=== PATIENT | female | born 1945 | race Caucasian/White ===

== ENCOUNTER → 2016-10-26 | Outpatient (CLI) | payer MEDICARE ==
--- NOTE | 2016-10-26 12:13 | WOMENS IMAGING REPORT ---
EXAM DESCRIPTION: BILAT SCREENING MAMMO W/CAD COMPLETED DATE/TIME: 10/26/2016 9:07 am REASON FOR STUDY: Z12.31 ROUTINE SCREENING MAMMO Z12.31 ENCNTR SCREEN MAMMOGRAM FOR MALIGNANT NEOPL ASM OF [place] COMPARISON: 08/03/2012 TECHNIQUE: Standard craniocaudal and mediolateral oblique views of each breast recorded using digita l acquisition. LIMITATIONS: None. FINDINGS: No masses, calcifications or architectural distortion. No areas of suspicion. Read with the assistance of CAD. .[facility] - R2 Cenova Version 1.3 .[facility] - R2 Cenova Version 1.3 .[facility] - R2 Cenova Version 2.4 .[facility] [place]2 Cenova Version 2.4 .[facility] - R2 Riverboat Captain Version 9.2 BREAST DENSITY: b. There are scattered areas of fibroglandular density. BIRAD: 1 NEGATIVE RECOMMENDATION: ROUTINE SCREENING COMMENT: PATIENT NOTIFIED BY LETTER. The [employer] recommends an annual screening mammogram for women aged 40 years or over. Each patient will receive a reminder prior to the anniversary date of her mammogram. The [employer] (ACR) has developed recommendations for screening MRI of the breast s in certain patient populations, to be used in conjunction with mammography. Breast MRI surveillanc e may be appropriate for women with more than 20% lifetime risk of developing breast cancer as deter mined by genetic testing, significant family history of the disease, or history of mantle radiation f or Hodgkins Disease. ACR Practice Guidelines 2008. TECHNICAL DOCUMENTATION: FINDING NUMBER: (1) ASSESSMENT: (1) JOB ID: [id number] [employer]- All Rights Reserved
== END ==
LOC: WI 08:48
PROVIDERS: ATTEND Internal Medicine
DX: Z12.31 Encounter for screening mammogram for malignant neoplasm of breast (principal)
CPT/HCPCS: 77067; G0202

== ENCOUNTER 2018-02-05 02:22 | Inpatient (IN) | payer MEDICARE ==
[2018-02-05] MEDS ORDERED: DILTIAZEM HCL INJ 25 MG/5 ML VIAL IV ONE (02:49)
[2018-02-05] MEDS ORDERED: ACETAMINOPHEN 325 MG TABLET PO ONE (02:49)
[2018-02-05] MEDS ORDERED: ASPIRIN 81 MG TABLET, CHEWABLE PO ONE (02:50)
[2018-02-05 03:05] LABS: ABSOLUTE LYMPHOCYTES (AUTO) 1.3 10^3/uL (0.5-4.7); ABSOLUTE NEUT (AUTO) 5.7 10^3/uL (1.7-8.2); BASOPHILS % (AUTO) 0.5 % (0-2); EOSINOPHILS % (AUTO) 0.2 % (0-6); HEMATOCRIT 42.1 % (36.0-47.0); HEMOGLOBIN 14.6 g/dL (12.0-15.5); LYMPHOCYTES % (AUTO) 16.7 % (13-45); MEAN CORPUSCULAR HEMOGLOBIN 30.4 pg (27.0-33.4); MEAN CORPUSCULAR HGB CONC 34.7 g/dL (32.0-36.0); MEAN CORPUSCULAR VOLUME 88 fl (80-97); MONOCYTES % (AUTO) 12.4 % (3-13); PLATELET COUNT 170 10^3/uL (150-450); RED CELL DISTRIBUTION WIDTH 13.5 % (11.5-14.0); SEGMENTED NEUTROPHILS % (AUTO) 70.2 % (42-78); TOTAL CELLS COUNTED % (AUTO) 100 %; WHITE BLOOD COUNT 8.1 10^3/uL (4.0-10.5)
--- NOTE | 2018-02-05 03:14 | ER Document Report ---
ED Cardiac - General Chief Complaint: Palpitations Stated Complaint: IRREGULAR HEART RATE Time Seen by Provider: 02/05/18 02:40 Mode of Arrival: Ambulatory Information source: Patient Notes: Patient presents to emergency department in [facility] with RVR. Patient reports that she has had a history of this multiple times. This episode started as she was about to have a bowel movement. Patient reports that she took 150 mg of Toprol-XL this evening as usually scheduled. And added on a dose of 50 mg Toprol with no change. Patient also takes an 80 mg of Cardizem daily. Patient reports that she has been to the ER multiple times for this and typically IV Cardizem hurts her. Patient is also stating that she has had cold symptoms of cough and congestion for 2-3 days with a low-grade fever. Patient denies any nausea or vomiting, denies any chest pain. 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 Bolden in [place] and her primary care doctor is Dr. Gould. TRAVEL OUTSIDE OF THE [place] IN LAST 30 DAYS: No - Related Data Allergies/Adverse Reactions: No Known Allergies Allergy (Verified 02/05/18 02:47) Past Medical History - General Information source: Patient - Social History Smoking Status: Never Smoker Frequency of alcohol use: None Drug Abuse: None Family History: Reviewed & Not Pertinent - Past Medical History Cardiac Medical History: Reports: Hx Atrial Fibrillation - with RVR, Hx Hypertension - Immunizations Hx Diphtheria, Pertussis, Tetanus Vaccination: Yes History of Influenza Vaccine for 07/2017 - 12/2017 Season: No Review of Systems - Review of Systems Constitutional: Chills, Fever EENT: No symptoms reported Cardiovascular: See HPI Respiratory: See HPI Gastrointestinal: No symptoms reported Genitourinary: No symptoms reported Female Genitourinary: No symptoms reported Musculoskeletal: No symptoms reported Skin: No symptoms reported Hematologic/Lymphatic: No symptoms reported Neurological/Psychological: No symptoms reported Physical Exam - Vital signs Vitals: Temp 100.3 F 02/05/18 02:35 - Notes Notes: PHYSICAL EXAMINATION: GENERAL: Well-appearing, well-nourished and in no acute distress. HEAD: Atraumatic, normocephalic. EYES: Pupils equal round and reactive to light, extraocular movements intact, conjunctiva are normal. ENT: Nares patent, oropharynx clear without exudates. Moist mucous membranes. NECK: Normal range of motion, supple without lymphadenopathy LUNGS: Breath sounds clear to auscultation bilaterally and equal. No wheezes rales or rhonchi. HEART: Increased heart rate, no murmur noted. ABDOMEN: Soft, nontender, nondistended abdomen. No guarding, no rebound. No masses appreciated. Female : deferred Musculoskeletal: Normal range of motion, no pitting or edema. No cyanosis. NEUROLOGICAL: Cranial nerves grossly intact. Normal speech, normal gait. Normal sensory, motor exams PSYCH: Normal mood, normal affect. SKIN: Warm, Dry, normal turgor, no rashes or lesions noted. Course - Re-evaluation Re-evalutation: Patient arrives in A. fib with RVR with a rate in the 140s. Patient states this has happened multiple times before. Patient states that her box printing machine operator has directed her to take an extra dose of her metoprolol. Patient reports that she took an extra dose but it did not help. Will give patient Cardizem bolus 15 mg. Patient denies any chest pain or shortness of breath. Patient reports that she has had a cough and congestion for the last 2-3 days with a low-grade fever, will add on septic workup. Patients heart rate down from 142 to 95 with 15 mg Cardizem bolus. We will hold off on starting drip at this time as patient states that in the past 1 IV dose of Cardizem has dropped her heart rate well enough that she has been able to avoid a drip. CBC, BMP, VBG and lactic are unremarkable. Chest x-ray with no acute findings. Heart rate increasing back to the 115-120 range, we will initiate Cardizem drip and consult hospitalist for admission. Spoke with Dr. Roger, hospitalist, Dr. Roger agrees to admit patient to his service. Patient is agreeable to this plan of care. Patient continues to deny any chest pain shortness of breath or palpitations. At time of admission patient's heart rate 86 and patient has remained normotensive and afebrile. - Vital Signs Vital signs: Temp Pulse Resp BP Pulse Ox 98.8 F 18 102/51 L 95 02/05/18 05:45 02/05/18 05:51 02/05/18 05:51 02/05/18 05:51 - Laboratory Result Diagrams: 02/05/18 02:43 02/05/18 02:43 Laboratory results interpreted by me: 02/05/18 02/05/18 02:43 02:43 Total Protein 8.3 H Urine Protein 30 H Urine Blood SMALL H Discharge - Discharge Clinical Impression: A-fib Qualifiers: Atrial fibrillation type: unspecified Qualified Code(s): I48.91 - Unspecified atrial fibrillation Fever Qualifiers: Fever type: unspecified Qualified Code(s): R50.9 - Fever, unspecified Condition: Stable Disposition: ADMITTED OBSERVATION Admitting Provider: Hospitalist Unit Admitted: Telemetry
[2018-02-05 03:17] LABS: ALANINE AMINOTRANSFERASE 30 U/L (9-52); ALBUMIN 4.9 g/dL (3.5-5.0); ALKALINE PHOSPHATASE 95 U/L (38-126); ASPARTATE AMINO TRANSFERASE 30 U/L (14-36); BILIRUBIN,DIRECT 0.3 mg/dL (0.0-0.4); BILIRUBIN,TOTAL 0.3 mg/dL (0.2-1.3); BLOOD UREA NITROGEN 15 mg/dL (7-20); CALCIUM 9.4 mg/dL (8.4-10.2); CREATINE KINASE 61 U/L (30-135); GLUCOSE 108 mg/dL (75-110); SODIUM 143.7 mmol/L (137-145); TOTAL PROTEIN 8.3 g/dL (6.3-8.2)
[2018-02-05 03:20] LABS: ANION GAP 16 (5-19); CARBON DIOXIDE 28 mmol/L (22-30); CHLORIDE 100 mmol/L (98-107)
[2018-02-05 03:23] LABS: APPEARANCE,URINE CLEAR; BILIRUBIN,URINE NEGATIVE (NEGATIVE); COLOR,URINE COLORLESS; GLUCOSE, URINE NEGATIVE (NEGATIVE); KETONES,URINE NEGATIVE (NEGATIVE); LEUKOCYTE ESTERASE,URINE NEGATIVE (NEGATIVE); NITRITE,URINE NEGATIVE (NEGATIVE); PROTEIN,URINE 30 mg/dL (NEGATIVE); URINE SPECIFIC GRAVITY 1.004; UROBILINOGEN,URINE NEGATIVE mg/dL (<2.0)
[2018-02-05 03:28] LABS: VENOUS BLOOD BASE EXCESS 0.2 mmol/L; VENOUS BLOOD HCO3 24.3 mmol/L (20-32); VENOUS BLOOD PH 7.42 (7.30-7.42)
[2018-02-05 03:29] LABS: CREATINE KINASE MB 0.43 ng/mL (<4.55); TROPONIN I < 0.012 ng/mL
[2018-02-05] MEDS ORDERED: DILTIAZEM HCL/D5W 125 MG/125 ML RTUINJ IV PRN (03:57)
[2018-02-05] MEDS ORDERED: DILTIAZEM HCL/D5W 125 MG/125 ML RTUINJ IV ONE (04:24)
[2018-02-05] MEDS ORDERED: CEFTRIAXONE INJ 1000 MG VIAL IV ONE (04:51)
[2018-02-05] MEDS ORDERED: AZITHROMYCIN INJ 500 MG VIAL IV ONE (04:52)
[2018-02-05] MEDS ORDERED: CHLORPHENIRAMINE MALEATE 4 MG TABLET PO ONE (05:05)
[2018-02-05] MEDS ORDERED: GUAIFENESIN SYRP 200 MG/10 ML UDC PO PRN (05:07)
[2018-02-05] MEDS ORDERED: ACETAMINOPHEN 325 MG TABLET PO PRN (05:07)
[2018-02-05] MEDS ORDERED: METOPROLOL TARTRATE 100 MG TABLET PO ONE (05:15)
[2018-02-05] MEDS ORDERED: FLUTICASONE NASAL SPRAY 50 MCG/SPRY 120 SPRAY/16 GM NASL ONE (05:45)
[2018-02-05] MEDS ORDERED: HEPARIN SOD (PORCINE) 5,000 UNIT/ML 1 ML SYRINGE SUBCUT SCH (06:00)
--- NOTE | 2018-02-05 07:21 | PDOC H&P ---
History of Present Illness Admission Date/PCP: 02/05/18 05:15 ERICK SHARMA MD Patient complains of: Cough and palpitations History of Present Illness: MARIO GEORGE is a 72 year old female with a past medical history of paroxysmal atrial fibrillation. Patient presents with 12 hours of palpitations for which she is instructed to take an extra 50 mg of Lopressor but did not resolve. She denies chest pain, nausea vomiting diaphoresis. She admits 48 hours of URI symptoms with rhinorrhea, postnasal drip and nonproductive cough. In the emergency room she is in A. fib with RVR and started on IV Cardizem in addition to a fever of 100.3 and receives Tylenol. Patient admits taking Coricidin and ibuprofen for URI symptoms but denies missing her scheduled diltiazem or metoprolol. Past Medical History Cardiac Medical History: Reports: Atrial Fibrillation - with RVR, Hypertension Social History Information Source: Patient Smoking Status: Never Smoker Frequency of Alcohol Use: None Drugs: None - Advance Directive Resuscitation Status: Full Code Family History Family History: CAD Parental Family History Reviewed: Yes Children Family History Reviewed: Yes Sibling(s) Family History Reviewed.: Yes Medication/Allergy Allergies/Adverse Reactions: No Known Allergies Allergy (Verified 02/05/18 02:47) Review of Systems Constitutional: ABSENT: chills, fever(s), headache(s), weight gain, weight loss Eyes: ABSENT: visual disturbances Ears: ABSENT: hearing changes Nose, Mouth, and Throat: PRESENT: as per HPI. ABSENT: headache(s), mouth pain, sore throat Cardiovascular: PRESENT: as per HPI. ABSENT: chest pain, dyspnea on exertion, edema, orthropnea, palpitations Respiratory: PRESENT: as per HPI, cough. ABSENT: dyspnea, hemoptysis, sputum Gastrointestinal: ABSENT: abdominal pain, constipation, diarrhea, hematemesis, hematochezia, nausea, vomiting Genitourinary: ABSENT: dysuria, hematuria Musculoskeletal: ABSENT: joint swelling Integumentary: ABSENT: rash, wounds Neurological: ABSENT: abnormal gait, abnormal speech, confusion, dizziness, focal weakness, syncope Psychiatric: ABSENT: anxiety, depression, homidical ideation, suicidal ideation Endocrine: ABSENT: cold intolerance, heat intolerance, polydipsia, polyuria Hematologic/Lymphatic: ABSENT: easy bleeding, easy bruising Physical Exam Vital Signs: Temp Pulse Resp BP Pulse Ox 98.8 F 18 99/51 L 98 02/05/18 05:45 02/05/18 06:25 02/05/18 06:15 02/05/18 06:32 General appearance: PRESENT: no acute distress, cooperative. ABSENT: disheveled Head exam: PRESENT: atraumatic, normocephalic Eye exam: PRESENT: conjunctiva pink, EOMI, PERRLA. ABSENT: scleral icterus Ear exam: PRESENT: normal external ear exam Mouth exam: PRESENT: moist, tongue midline Neck exam: ABSENT: carotid bruit, JVD, lymphadenopathy, thyromegaly Respiratory exam: PRESENT: clear to auscultation maria t, crackles, symmetrical. ABSENT: accessory muscle use, rales, rhonchi, wheezes Cardiovascular exam: PRESENT: RRR. ABSENT: diastolic murmur, rubs, systolic murmur Pulses: PRESENT: normal dorsalis pedis pul Vascular exam: PRESENT: normal capillary refill GI/Abdominal exam: PRESENT: normal bowel sounds, soft. ABSENT: distended, guarding, mass, organolmegaly, rebound, tenderness Rectal exam: PRESENT: deferred Extremities exam: PRESENT: full ROM. ABSENT: calf tenderness, clubbing, pedal edema Neurological exam: PRESENT: alert, awake, oriented to person, oriented to place , oriented to time, oriented to situation, CN II-XII grossly intact. ABSENT: motor sensory deficit Psychiatric exam: PRESENT: appropriate affect, normal mood. ABSENT: homicidal ideation, suicidal ideation Skin exam: PRESENT: dry, intact, warm. ABSENT: cyanosis, rash Assessment & Plan - Diagnosis (1) A-fib Qualifiers: Atrial fibrillation type: unspecified Qualified Code(s): I48.91 - Unspecified atrial fibrillation Is this a current diagnosis for this admission?: Yes Plan: Patient has converted to normal sinus rhythm on IV diltiazem. Will optimize metoprolol, 2D echo and full dose Lovenox. (2) Acute bronchitis Is this a current diagnosis for this admission?: Yes Plan: Empiric antibiotic, Flonase, albuterol and Xopenex. Consider prednisone - Time Time Spent: 30 to 50 Minutes - Inpatient Certification Medical Necessity: Need Close Monitoring Due to Risk of Patient Decompensation
[2018-02-05] MEDS ORDERED: ENOXAPARIN SODIUM INJ 60 MG/0.6 ML DISP.SYRIN SUBCUT ONE (07:45)
--- NOTE | 2018-02-05 08:11 | EKG REPORT ---
SEVERITY:- ABNORMAL ECG - ATRIAL FIBRILLATION WITH RAPID V-RATE CONSIDER POSTERIOR INFARCT REPOLARIZATION ABNORMALITY, PROB RATE RELATED : Confirmed by: Juni Haile MD 05-Feb-2018 08:10:13
--- NOTE | 2018-02-05 08:11 | EKG REPORT ---
SEVERITY:- ABNORMAL ECG - ATRIAL FIBRILLATION, V-RATE 75-92 : Confirmed by: Juni Haile MD 05-Feb-2018 08:09:55
[2018-02-05] MEDS: IPRATROPIUM BROMIDE 0.02% NEB 0.5 MG/2.5 ML AMPUL NEB SCH ×2 (08:17→13:51)
[2018-02-05] MEDS: LEVALBUTEROL HCL NEB 1.25 MG/3 ML AMPUL NEB SCH ×2 (08:18→13:51)
--- NOTE | 2018-02-05 08:42 | RADIOLOGY REPORT (SQ) ---
EXAM DESCRIPTION: CHEST SINGLE VIEW COMPLETED DATE/TIME: 02/05/2018 3:54 am REASON FOR STUDY: afib with RVR COMPARISON: 07/27/2007 EXAM PARAMETERS: NUMBER OF VIEWS: One view. TECHNIQUE: Single frontal radiographic view of the chest acquired. RADIATION DOSE: NA LIMITATIONS: None. FINDINGS: LUNGS AND PLEURA: No opacities, masses or pneumothorax. No pleural effusion. MEDIASTINUM AND HILAR STRUCTURES: No masses. Contour normal. HEART AND VASCULAR STRUCTURES: Heart normal in size. Normal vasculature. BONES: No acute findings. HARDWARE: None in the chest. OTHER: No other significant finding. IMPRESSION: NO ACUTE RADIOGRAPHIC FINDING IN THE CHEST. TECHNICAL DOCUMENTATION: JOB ID: [id number] [employer]- All Rights Reserved Reading location - IP/workstation name: [email or web address]
[2018-02-05] MEDS ORDERED: DILTIAZEM HCL 120 MG CAP.SR.24H PO SCH (10:00)
[2018-02-05 11:35] LABS: CREATINE KINASE MB 0.35 ng/mL (<4.55)
[2018-02-05 11:36] LABS: TROPONIN I < 0.012 ng/mL
[2018-02-05 13:59] VITALS: BP 95/59
--- NOTE | 2018-02-05 14:35 | PDOC DISCHARGE SUMMARY ---
General - Admit/Disc Date/PCP Admission Date/Primary Care Provider: 02/05/18 05:15 ERICK SHARMA MD Discharge Date: 02/05/18 - Discharge Diagnosis (1) A-fib Is this a current diagnosis for this admission?: Yes (2) Acute bronchitis Is this a current diagnosis for this admission?: Yes (3) Fever Is this a current diagnosis for this admission?: Yes - Additional Information Resuscitation Status: Full Code Discharge Diet: As Tolerated Discharge Activity: Activity As Tolerated Prescriptions: Azithromycin [Zithromax 250 mg Tablet] 500 mg PO DAILY #4 tab Fluticasone Propionate [Flonase Nasal [place] 50 Mcg/[place] 16 gm] 2 spray NASL Q12 14 Days #1 spray.pump Home Medications: Azithromycin [Zithromax 250 mg Tablet] 500 mg PO DAILY #4 tab 02/05/18 Diltiazem HCl [Cartia Xt] 180 mg PO DAILY 02/05/18 Fluticasone Propionate [Flonase Nasal [place] 50 Mcg/[place] 16 gm] 2 spray NASL Q12 14 Days #1 spray.pump 02/05/18 Metoprolol Succinate [Toprol XL 100 mg Tablet] 150 mg PO QPM 02/05/18 History of Present Illness Patient complains of: Palpitations as well as cough for 1 day History of Present Illness: MARIO GEORGE is a 72 year old female with a past medical history of paroxysmal atrial fibrillation. Patient presents with 12 hours of palpitations for which she is instructed to take an extra 50 mg of Lopressor but did not resolve. She denies chest pain, nausea vomiting diaphoresis. She admits 48 hours of URI symptoms with rhinorrhea, postnasal drip and nonproductive cough. In the emergency room she is in A. fib with RVR and started on IV Cardizem in addition to a fever of 100.3 and receives Tylenol. Patient admits taking Coricidin and ibuprofen for URI symptoms but denies missing her scheduled diltiazem or metoprolol. Hospital Course Hospital Course: This patient was admitted with atrial fibrillation with rapid ventricular response. She was found to have acute bronchitis and this likely was the precipitant. Patient does have history of chronic atrial fibrillation and it appears she had been well controlled on her current diltiazem and metoprolol regimen. She has converted to sinus rhythm at this time.. She has walked up and down the hallway with no paroxysms of atrial fibrillation. Patient does have a cardiology that she follows. She is not on any anticoagulant likely because of a low chads 2 vascular score and at this point I see no indication to start out on anticoagulant. I will leave this up to have videotape editor who she already has a follow-up appointment with on February 09. Patient is feeling well and would no further interventions been planned and with stable hemodynamics it is felt that she can be discharged home for follow- up with her primary care physician. Physical Exam Vital Signs: Temp Pulse Resp BP Pulse Ox 97.6 F 62 20 95/59 L 98 02/05/18 13:57 02/05/18 13:57 02/05/18 13:57 02/05/18 13:57 02/05/18 13:57 Pulse Oximeter Continuous Start: 02/05/18 05: 07 Freq: RTQ4 Status: Active Document 02/05/18 12:00 JDR (Rec: 02/05/18 12:16 JDR [email or web address]) Pulse Oximetry Assessment Equipment Usage Equipment Standby Continuous SpO2 Machine # 0 Additional RT Notes Other on nurses monitor Intake & Output 02/04/18 02/05/18 02/06/18 06:59 06:59 06:59 Intake Total 150 Balance 150 Weight 54.6 kg General appearance: PRESENT: no acute distress Head exam: PRESENT: atraumatic Eye exam: PRESENT: conjunctiva pink, EOMI, PERRLA. ABSENT: scleral icterus Ear exam: PRESENT: normal external ear exam Pulses: PRESENT: normal dorsalis pedis pul GI/Abdominal exam: PRESENT: ascites Rectal exam: PRESENT: deferred Psychiatric exam: PRESENT: appropriate affect Results Laboratory Results: 02/05/18 02/05/18 07:52 10:38 CK-MB (CK-2) 0.35 Troponin I < 0.012 < 0.012 Impressions: Chest X-Ray 02/05/18 02:50 IMPRESSION: NO ACUTE RADIOGRAPHIC FINDING IN THE CHEST. Qualifiers - * PATIENT BEING DISCHARGED WITH ANY OF THE FOLLOWING DIAGNOSIS: No
[2018-02-05] MEDS ORDERED: METOPROLOL TARTRATE 100 MG TABLET PO SCH (22:00)
[2018-02-05] MEDS ORDERED: ENOXAPARIN SODIUM INJ 60 MG/0.6 ML DISP.SYRIN SUBCUT SCH (22:00)
[2018-02-05] MEDS ORDERED: FLUTICASONE NASAL SPRAY 50 MCG/SPRY 120 SPRAY/16 GM NASL SCH (22:00)
[2018-02-06] MEDS ORDERED: CEFTRIAXONE SODIUM 1,000 MG in DEXTROSE 5%-WATER 50 ML IV SCH (08:00)
[2018-02-06] MEDS ORDERED: CEFTRIAXONE 1 GM/D5W RTU 1 GM/50 ML RTUPB IV SCH (08:00)
[2018-02-06] MEDS ORDERED: AZITHROMYCIN 500 MG in DEXTROSE 5%-WATER 250 ML IV SCH (08:00)
== END 2018-02-05 14:37 | disposition home or self-care (01) | DRG 310 ==
LOC: ER 02:22 → OBSVTOIN 05:15 → EH 05:15 → 3W 06:46
PROVIDERS: ADMIT Internal Medicine; ATTEND Internal Medicine
DX: I48.0 Paroxysmal atrial fibrillation (principal); J20.9 Acute bronchitis, unspecified; I10 Essential (primary) hypertension; Z79.899 Other long term (current) drug therapy; Z82.49 Family history of ischemic heart disease and other diseases of the circulatory system
CPT/HCPCS: 36415; 71045; 80053; 81001; 82550; 82553; 82803; 83605; 84484; 85025; 87040; 93005; 93010; 94640; 94667; 94799; 96365; 96366; 96367; 96368; 96372; 96376; 99285; J0456; J0696; J1644; J1650; J3490

== ENCOUNTER 2020-08-11 03:57 | Inpatient (IN) | payer MEDICARE ==
[2020-08-11] MEDS ORDERED: DILTIAZEM HCL INJ 25 MG/5 ML VIAL IV ONE (04:27)
[2020-08-11] MEDS ORDERED: DILTIAZEM HCL/D5W 125 MG/125 ML RTUINJ IV PRN (04:27)
--- NOTE | 2020-08-11 04:28 | ER Document Report ---
ED Cardiac - General TRAVEL OUTSIDE OF THE [place] IN LAST 30 DAYS: No <SABINO NARANJO - Last Filed: 08/11/20 06:50> <NAYE CAMERON - Last Filed: 08/11/20 09:32> - General Chief Complaint: Chest Pain Stated Complaint: CHEST PAIN Time Seen by Provider: 08/11/20 04:15 Primary Care Provider: ERICK SHARMA MD [Primary Care Provider] - Follow up as needed - [facility] Notes: Patient is a 74-year-old female with a past medical history of atrial fibrillation on Eliquis who presents with palpitations. She states symptoms began at 2:15 AM and woke her up from sleep. This feels just like her normal atrial fibrillation symptoms. She states she has some slight discomfort in her right chest. She denies shortness of breath. No fevers or chills. No cough or cold. Patient states she tried to drink cold water at home to help the symptoms but it did not help. She sees cardiology in [place]. (SABINO NARANJO) - Related Data Allergies/Adverse Reactions: No Known Allergies Allergy (Verified 02/05/18 02:47) Past Medical History - General Information source: Patient - Social History Family History: CAD - Past Medical History Cardiac Medical History: Reports: Hx Atrial Fibrillation - with RVR, Hx Hypertension Renal/ Medical History: Denies: Hx Peritoneal Dialysis Psychiatric Medical History: Denies: Hx Depression - Immunizations Hx Diphtheria, Pertussis, Tetanus Vaccination: Yes <SABINO NARANJO - Last Filed: 08/11/20 06:50> - Social History Smoking Status: Unknown if Ever Smoked <NAYE CAMERON - Last Filed: 08/11/20 09:32> Review of Systems <SABINO NARANJO - Last Filed: 08/11/20 06:50> - Review of Systems Notes: CONSTITUTIONAL: No fever, fatigue or weight loss. SKIN: No rash. HENT: No congestion, ear pain, or sore throat. EYES: No recent vision problems or eye pain. ENDOCRINE: No thyroid problems. No polyuria or polydipsia. CARDIOVASCULAR: Mild chest discomfort on the right. Palpitations. RESPIRATORY: No cough, shortness of breath, congestion, or wheezing. GASTROINTESTINAL: No abdominal pain, nausea, vomiting, bloody stools or diarrhea. GENITOURINARY: No dysuria. MUSCULOSKELETAL: No joint pain or swelling. LYMPHATIC: No swollen glands. NEUROLOGIC: No seizures. No headache, focal weakness or sensory changes. HEMATOLOGIC: No unusual bruising or bleeding. PSYCHIATRIC: No depression or anxiety. (SABINO NARANJO) Physical Exam - General General appearance: Appears well <SABINO NARANJO - Last Filed: 08/11/20 06:50> - Vital signs Vitals: Resp Pulse Ox 17 98 08/11/20 04:17 08/11/20 04:17 - General Notes: VITAL SIGNS: Tachycardic GENERAL: No acute distress, non-toxic appearance. HEAD: Normal with no signs of head trauma. EYES: EOMI, conjunctiva normal, no discharge. EARS: Hearing grossly intact. NOSE: Normal. NECK: Normal range of motion, no tenderness, supple, no lymphadenopathy, No adenopathy, no JVD. CHEST: Clear breath sounds bilaterally. No wheezes, rales, or rhonchi. CARDIAC: Tachycardic.. VASCULAR: No Edema. Peripheral pulses normal and equal in all extremities. ABDOMEN: Normal and soft with no tenderness, no masses or pulsatile masses. GENITOURINARY: Normal, No tenderness MUSCULOSKELETAL: Good range of motion of all major joints. Extremities without clubbing, cyanosis or edema. NEUROLOGICAL: Alert and oriented x 3. No focal sensory or strength deficits. Speech normal. Follows commands appropriately. PSYCHIATRIC: Normal Affect, judgement and mood. SKIN: Normal appearance with no rashes or lesions. (SABINO NARANJO) Course - Laboratory Result Diagrams: 08/11/20 04:20 08/11/20 04:20 - Diagnostic Test Radiology reviewed: Image reviewed, Reports reviewed - EKG Interpretation by Ga Rate: Tachycardia Rhythm: A.Flutter When compared to previous EKG there are: No significant change <SABINO NARANJO - Last Filed: 08/11/20 06:50> - Laboratory Result Diagrams: 08/11/20 04:20 08/11/20 04:20 <NAYE CAMERON - Last Filed: 08/11/20 09:32> - Re-evaluation Re-evalutation: 08/11/20 04:56 She has an A flutter. She will be given Cardizem. 08/11/20 06:18 Patient converted to normal sinus rhythm after the Cardizem bolus and drip. The drip was stopped. I discussed with cardiology who stated that she can be discharged home and continue her normal medication regimen. They stated that likely her slightly raised troponin is from the tachycardia. 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 I did discuss with her staying for second troponin to make sure it is not rising and she is in agreement. She states that her chest discomfort has eased up. Patient will be signed out to my colleague at the end of my shift. (SABINO HOLLEY) 08/11/20 09:23 Second troponin is trending upward 0.042. Patient is pain-free. Her follow-up EKG showed no acute ST/T wave changes. Findings were discussed with her cardio logist in [place] Dr. Velazco and they recommend patient should be admitted locally and seen by cardiology for nuclear stress testing. I discussed this with Dr. Cain our on-call [employer] operations and he was also comfortable with this plan. He recommends admission by the hospitalist. Patient is agreeable with this plan. Patient will be presented to the on-call hospitalist Dr. Rogers for admission. (NAYE CAMERON) - Vital Signs Vital signs: Temp Pulse Resp BP Pulse Ox 98.5 F 155 H 12 122/66 97 08/11/20 06:00 08/11/20 04:26 08/11/20 06:01 08/11/20 06:00 08/11/20 06:01 - Laboratory Laboratory results interpreted by me: 08/11/20 08/11/20 08/11/20 04:20 04:20 04:30 Hgb 15.7 H Glucose 121 H Total Protein 8.3 H Urine Protein 30 H Urine Blood SMALL H - EKG Interpretation by Me Additional EKG results interpreted by me: 08/11/20 06:51 Repeat EKG shows sinus rhythm at a rate of 72. QTc 430. No acute ST changes. (SABINO NARANJO) Discharge <SABINO NARANJO - Last Filed: 08/11/20 06:50> - Discharge Admitting Provider: Ken (Hospitalist) Unit Admitted: Telemetry <NAYE CAMERON - Last Filed: 08/11/20 09:32> - Discharge Clinical Impression: Atrial flutter Qualifiers: Atrial flutter type: unspecified Qualified Code(s): I48.92 - Unspecified atrial flutter Chest pain Qualifiers: Chest pain type: unspecified Qualified Code(s): R07.9 - Chest pain, unspecified Condition: Stable Disposition: HOME, SELF-CARE Additional Instructions: Please follow-up with your [employer] operations. Please return to the ER for any return of chest pain, shortness of breath, palpitations, any other symptoms. Referrals: ERICK SHARMA MD [Primary Care Provider] - Follow up as needed
[2020-08-11 04:37] LABS: ABSOLUTE BASOPHILS # (AUTO) 0.1 10^3/uL (0.0-0.2); ABSOLUTE EOSINOPHILS # (AUTO) 0.3 10^3/uL (0.0-0.6); ABSOLUTE LYMPHOCYTES (AUTO) 2.2 10^3/uL (0.5-4.7); ABSOLUTE MONOCYTES (AUTO) 0.8 10^3/uL (0.1-1.4); ABSOLUTE NEUT (AUTO) 5.4 10^3/uL (1.7-8.2); BASOPHILS % (AUTO) 1.1 % (0-2); EOSINOPHILS % (AUTO) 3.4 % (0-6); HEMATOCRIT 44.2 % (36.0-47.0); HEMOGLOBIN 15.7 g/dL (12.0-15.5); LYMPHOCYTES % (AUTO) 24.8 % (13-45); MEAN CORPUSCULAR HEMOGLOBIN 31.6 pg (27.0-33.4); MEAN CORPUSCULAR HGB CONC 35.5 g/dL (32.0-36.0); MEAN CORPUSCULAR VOLUME 89 fl (80-97); MONOCYTES % (AUTO) 9.5 % (3-13); PLATELET COUNT 252 10^3/uL (150-450); RED BLOOD COUNT 4.97 10^6/uL (3.72-5.28); SEGMENTED NEUTROPHILS % (AUTO) 61.2 % (42-78); TOTAL CELLS COUNTED % (AUTO) 100 %; WHITE BLOOD COUNT 8.8 10^3/uL (4.0-10.5)
[2020-08-11 04:54] LABS: APPEARANCE,URINE CLEAR; BILIRUBIN,URINE NEGATIVE (NEGATIVE); COLOR,URINE COLORLESS; GLUCOSE, URINE NEGATIVE (NEGATIVE); KETONES,URINE NEGATIVE (NEGATIVE); LEUKOCYTE ESTERASE,URINE NEGATIVE (NEGATIVE); NITRITE,URINE NEGATIVE (NEGATIVE); PROTEIN,URINE 30 mg/dL (NEGATIVE); URINE SPECIFIC GRAVITY 1.002; UROBILINOGEN,URINE NEGATIVE mg/dL (<2.0)
[2020-08-11 04:56] LABS: ALBUMIN 4.9 g/dL (3.5-5.0); ALKALINE PHOSPHATASE 80 U/L (38-126); ANION GAP 11 (5-19); ASPARTATE AMINO TRANSFERASE 35 U/L (14-36); BILIRUBIN,TOTAL 0.5 mg/dL (0.2-1.3); BLOOD UREA NITROGEN 17 mg/dL (7-20); CALCIUM 10.1 mg/dL (8.4-10.2); CARBON DIOXIDE 26 mmol/L (22-30); CHLORIDE 104 mmol/L (98-107); CREATINE KINASE 64 U/L (30-135); GLUCOSE 121 mg/dL (75-110); POTASSIUM 4.3 mmol/L (3.6-5.0); TOTAL PROTEIN 8.3 g/dL (6.3-8.2)
[2020-08-11 05:07] LABS: CREATINE KINASE MB 0.85 ng/mL (<4.55); TROPONIN I 0.021 ng/mL
--- NOTE | 2020-08-11 05:09 | RADIOLOGY REPORT (SQ) ---
CLINICAL HISTORY: palpitations COMPARISON: 02/05/2018. TECHNIQUE: XR CHEST 1 VIEW 08/11/2020 4:16 AM [employer]JECT MANAGER FINDINGS: The heart is borderline in size. Lungs are clear without consolidation, atelectasis, mass or edema. There is no pleural effusion. There is no pneumothorax. There are no acute osseous findings. IMPRESSION: Clear lungs.
--- NOTE | 2020-08-11 06:23 | EKG REPORT ---
SEVERITY:- NORMAL ECG - SINUS RHYTHM : Confirmed by: Juni Haile MD 11-Aug-2020 06:22:43
--- NOTE | 2020-08-11 07:52 | EKG REPORT ---
SEVERITY:- ABNORMAL ECG - A-FIB W/ RVR PROLONGED QT INTERVAL : Confirmed on behalf of: Juni Haile MD 11-Aug-2020 07:52:14
[2020-08-11 11:03] LABS: FREE T4 (FREE THYROXINE) 1.24 ng/dL (0.78-2.19)
[2020-08-11 11:17] LABS: THYROID STIMULATING HORMONE 8.23 uIU/mL (0.47-4.68)
[2020-08-11] MEDS ORDERED: REGADENOSON INJ 0.4 MG/5 ML DISP.SYRIN IV ONE (11:52)
[2020-08-11] MEDS: APIXABAN 5 MG TABLET PO SCH ×2 (12:13→21:23)
--- NOTE | 2020-08-11 14:29 | PDOC H&P ---
History of Present Illness Admission Date/PCP: 08/11/20 10:07 ERICK SHARMA MD History of Present Illness: MARIO GEORGE is a 74 year old female with a history of atrial fibrillation on 3 medications for rate control plus anticoagulation who was in her usual state of health until she woke up at 2:00 this morning. She felt a heaviness and a burning in her chest that she had not felt before. She says she was suspicious that her heart rate was out of control and she checked it and it was elevated. She tried to do some conservative measures at home to try to get it under better control but these did not work. She said her rate got as high as 149. Her last stress test was 3 or 4 years ago. She came to the ER and was given some IV Cardizem and was going to be put on a Cardizem drip but she converted to a sinus rhythm. She then took all of her home medications this morning as prescribed. She has maintained a sinus rhythm since. Her chest discomfort also resolved. She did have some bump in her troponins. Her director river restoration was contacted. She sees a Dr. Eagle who spoke to Dr. Cain and asked if she could be brought in for a nuclear stress test. Past Medical History Cardiac Medical History: Reports: Atrial Fibrillation - with RVR, Hypertension Psychiatric Medical History: Denies: Depression Social History Smoking Status: Unknown if Ever Smoked Frequency of Alcohol Use: None Hx Recreational Drug Use: No Drugs: None Hx Prescription Drug Abuse: No Family History Family History: CAD Parental Family History Reviewed: Yes Children Family History Reviewed: Yes Sibling(s) Family History Reviewed.: Yes Medication/Allergy Home Medications: Diltiazem HCl [Cartia Xt] 180 mg PO DAILY 02/05/18 Apixaban [Eliquis 5 mg Tablet] 5 mg PO BID 08/11/20 Carvedilol 25 mg PO Q12 08/11/20 Flecainide Acetate [Tambocor 100 Mg Tablet] 100 mg PO Q12 08/11/20 Allergies/Adverse Reactions: No Known Allergies Allergy (Verified 02/05/18 02:47) Review of Systems All systems: reviewed and no additional remarkable complaints except as stated - All systems were reviewed and were negative except as noted in HPI Physical Exam Vital Signs: Temp Pulse Resp BP Pulse Ox 98.5 F 155 H 12 122/66 97 08/11/20 06:00 08/11/20 04:26 08/11/20 06:01 08/11/20 06:00 08/11/20 06:01 Intake & Output 08/10/20 08/11/20 08/12/20 06:59 06:59 06:59 Intake Total 7 0 Balance 7 0 Weight 61.8 kg General appearance: PRESENT: no acute distress, cooperative Head exam: PRESENT: atraumatic, normocephalic Eye exam: PRESENT: EOMI, PERRLA. ABSENT: conjunctival injection, nystagmus, scleral icterus Ear exam: PRESENT: normal external ear exam Mouth exam: PRESENT: moist, neck supple Throat exam: ABSENT: post pharyngeal erythema Neck exam: PRESENT: full ROM. ABSENT: carotid bruit, JVD, lymphadenopathy, meningismus, tenderness, thyromegaly Respiratory exam: PRESENT: clear to auscultation maria t, symmetrical, unlabored. ABSENT: accessory muscle use, chest wall tenderness, crackles, prolonged expiratory phas, rhonchi, tachypnea, wheezes Cardiovascular exam: PRESENT: RRR, +S1, +S2 Pulses: PRESENT: normal carotid pulses Vascular exam: PRESENT: normal capillary refill GI/Abdominal exam: PRESENT: normal bowel sounds, soft. ABSENT: distended, guarding, rebound, tenderness Extremities exam: ABSENT: clubbing, pedal edema Musculoskeletal exam: PRESENT: normal inspection. ABSENT: deformity Neurological exam: PRESENT: alert, awake, oriented to person, oriented to place, oriented to time, oriented to situation, CN II-XII grossly intact. ABSENT: motor sensory deficit Psychiatric exam: PRESENT: appropriate affect, normal mood Skin exam: PRESENT: dry, warm Results Laboratory Results: 08/11/20 04:20 08/11/20 04:20 08/11/20 08/11/20 08/11/20 04:20 04:20 04:20 WBC 8.8 RBC 4.97 Hgb 15.7 H Hct 44.2 MCV 89 MCH 31.6 MCHC 35.5 RDW 13.0 Plt Count 252 Seg Neutrophils % 61.2 Sodium 141.3 Potassium 4.3 Chloride 104 Carbon Dioxide 26 Anion Gap 11 BUN 17 Creatinine 0.75 Est GFR ( Amer) > 60 Glucose 121 H Calcium 10.1 Magnesium 2.0 Total Bilirubin 0.5 AST 35 Alkaline Phosphatase 80 Total Protein 8.3 H Albumin 4.9 TSH 8.23 H Free T4 1.24 Urine Color Urine Appearance Urine pH Ur Specific Vivian Urine Protein Urine Glucose (UA) Urine Ketones Urine Blood Urine Nitrite Ur Leukocyte Esterase Urine WBC (Auto) 08/11/20 04:30 WBC RBC Hgb Hct MCV MCH MCHC RDW Plt Count Seg Neutrophils % Sodium Potassium Chloride Carbon Dioxide Anion Gap BUN Creatinine Est GFR ( Amer) Glucose Calcium Magnesium Total Bilirubin AST Alkaline Phosphatase Total Protein Albumin TSH Free T4 Urine Color COLORLESS Urine Appearance CLEAR Urine pH 8.0 Ur Specific Vivian 1.002 Urine Protein 30 H Urine Glucose (UA) NEGATIVE Urine Ketones NEGATIVE Urine Blood SMALL H Urine Nitrite NEGATIVE Ur Leukocyte Esterase NEGATIVE Urine WBC (Auto) 0 08/11/20 08/11/20 08/11/20 04:20 04:20 07:05 Creatine Kinase 64 CK-MB (CK-2) 0.85 Troponin I 0.021 0.046 Impressions: Chest X-Ray 08/11/20 04:16 IMPRESSION: Clear lungs. Assessment and Plan - Diagnosis (1) Atrial fibrillation with RVR Is this a current diagnosis for this admission?: Yes (2) Chest pain Qualifiers: Chest pain type: other chest pain Qualified Code(s): R07.89 - Other chest pain; R07.8 - Other chest pain Is this a current diagnosis for this admission?: Yes - Plan Summary Summary: Her only known medical problem is her atrial fibrillation. She takes Coreg, diltiazem, and flecainide, plus Eliquis. She converted to a sinus rhythm in the ER after a push of IV diltiazem. We are going to continue her home medications and keep her on telemetry. We are going to trend her troponins. We will get a stress test tomorrow morning. - Time Time Spent with patient: 35 or more minutes Anticipated Discharge Disposition: Home, Self Care Anticipated Discharge Timeframe: within 48 hours - Inpatient Certification Based on my medical assessment, after consideration of the patient's comorbidities, presenting symptoms, or acuity I expect that the services needed warrant INPATIENT care.: Yes I certify that my determination is in accordance with my understanding of Medicare's requirements for reasonable and necessary INPATIENT services [42 CFR 412.3e].: Yes Medical Necessity: Significant Comorbidiites Make Outpatient Treatment Too Ris [place], Need Close Monitoring Due to Risk of Patient Decompensation, Need For Continuous Telemetry Monitoring, Risk of Complication if Not Cared For in Hospital
[2020-08-11] MEDS: FLECAINIDE ACETATE 100 MG TABLET PO SCH (21:21)
[2020-08-11] MEDS: CARVEDILOL 12.5 MG TABLET PO SCH (21:22)
[2020-08-12 05:59] LABS: HEMATOCRIT 39.9 % (36.0-47.0); MEAN CORPUSCULAR HEMOGLOBIN 31.2 pg (27.0-33.4); MEAN CORPUSCULAR VOLUME 89 fl (80-97); PLATELET COUNT 208 10^3/uL (150-450); RED BLOOD COUNT 4.48 10^6/uL (3.72-5.28); RED CELL DISTRIBUTION WIDTH 13.2 % (11.5-14.0); WHITE BLOOD COUNT 6.9 10^3/uL (4.0-10.5)
[2020-08-12] MEDS ORDERED: REGADENOSON INJ 0.4 MG/5 ML DISP.SYRIN IV ONE (06:00)
[2020-08-12 06:20] LABS: ANION GAP 12 (5-19); BLOOD UREA NITROGEN 22 mg/dL (7-20); CALCIUM 9.1 mg/dL (8.4-10.2); CARBON DIOXIDE 24 mmol/L (22-30); CHLORIDE 105 mmol/L (98-107); CHOLESTEROL 229.25 mg/dL (0-200); GLUCOSE 89 mg/dL (75-110); POTASSIUM 3.9 mmol/L (3.6-5.0); TRIGLYCERIDES 126 mg/dL (<150)
[2020-08-12 06:31] LABS: DIRECT LDL 130 mg/dL (<100)
[2020-08-12] MEDS: CARVEDILOL 12.5 MG TABLET PO SCH (09:15)
[2020-08-12] MEDS: APIXABAN 5 MG TABLET PO SCH (09:15)
[2020-08-12] MEDS: FLECAINIDE ACETATE 100 MG TABLET PO SCH (09:15)
[2020-08-12] MEDS ORDERED: DILTIAZEM HCL 180 MG CAPSULE.CR PO SCH (10:00)
--- NOTE | 2020-08-12 11:01 | DRAGON STRESS TEST REPORT ---
Name: Afua Durant : Sep Date: AUG 29 The patient underwent a stress/rest, single isotope SPECT Imaging with pharmacological stress and gated SPECT imaging on for evaluation of chest pain. The patient underwent infusion of regadnoson 0.4mg IV using the standard protocol. The heart rate was 55 beats per minute at baseline and increased to 94 beats during the infusion of regadenoson. The resting blood pressure was 136/74 mm/Hg and increased to 159/65 mm/Hg, which is a normal response. The patient complained of no symptoms during the procedure. The resting electrocardiogram demonstrated NSR. Stress electrocardiogram is non- diagnostic in the setting of pharmacological stress. Myocardial perfusion imaging was performed at rest following the injection of 10.38 mCi of sestamibi. At peak pharmacolgic effect, the patient was injected with 31.1 mCi of sestamibi. Gating post-stress tomographic imaging was performed 60 minutes after stress. Findings The overall quality of the study is excellent. Raw images demonstrate no significant artifacts. Left ventricular cavity is noted to be normal on the rest and stress studies. Resting SPECT images demonstrate homogeneous tracer distribution throughout the myocardium. The stress images reveal homogeneous tracer distribution throughout the myocardium. Gated SPECT imaging reveals normal myocardial thickening and wall motion. The left ventricular ejection fraction was calculated to be 80% Impression -Myocardial perfusion imaging is normal. -There is no scintigraphic evidence of ischemia or infarct. -Overall left ventricular systolic function was normal without wall motion abnormalities. -There are no prior studies for comparison. [facility]
[2020-08-12 12:11] VITALS: BP 114/48
--- NOTE | 2020-08-12 16:45 | EKG REPORT ---
SEVERITY:- NORMAL ECG - SINUS BRADYCARDIA : Confirmed by: Júnior Anna MD 12-Aug-2020 16:45:02
--- NOTE | 2020-08-12 19:32 | PDOC DISCHARGE SUMMARY ---
Impression - Admit/DC Date/PCP Admission Date/Primary Care Provider: 08/11/20 10:07 ERICK SHARMA MD Discharge Date: 08/12/20 - Additional Information Discharge Diet: Cardiac Discharge Activity: Activity As Tolerated, Balance Activity w/Rest Referrals: ERICK SHARMA MD [Primary Care Provider] - 08/19/20 10:30 am Home Medications: Diltiazem HCl [Cartia Xt] 180 mg PO DAILY 02/05/18 Apixaban [Eliquis 5 mg Tablet] 5 mg PO BID 08/11/20 Carvedilol 25 mg PO Q12 08/11/20 Flecainide Acetate [Tambocor 100 mg Tablet] 100 mg PO Q12 08/11/20 History of Present Illiness History of Present Illness: Per H&P by Dr. Rogers: MARIO GEORGE is a 74 year old female with a history of atrial fibrillation on 3 medications for rate control plus anticoagulation who was in her usual state of health until she woke up at 2:00 this morning. She felt a heaviness and a burning in her chest that she had not felt before. She says she was suspicious that her heart rate was out of control and she checked it and it was elevated. She tried to do some conservative measures at home to try to get it under better control but these did not work. She said her rate got as high as 149. Her last stress test was 3 or 4 years ago. She came to the ER and was given some IV Cardizem and was going to be put on a Cardizem drip but she converted to a sinus rhythm. She then took all of her home medications this morning as prescribed. She has maintained a sinus rhythm since. Her chest discomfort also resolved. She did have some bump in her troponins. Her ground support equipment mechanic was contacted. She sees a Dr. Eagle who spoke to Dr. Cain and asked if she could be brought in for a nuclear stress test. Hospital Course Hospital Course: The patient presented to the emergency department for complaint of chest discomfort with elevated heart rate. She is found to be in atrial fibrillation RVR. The emergency department provider pushed diltiazem with plans to start a diltiazem drip; fortunately, the patient converted to normal sinus rhythm and did not require the diltiazem drip. She was monitored overnight on continuous cardiac telemetry; remains in a normal sinus rhythm on her home medication regiment. Laboratory evaluation was reassuring with normal CBC, chemistry, negative troponins x4, and normal urinalysis. Lipid panel did reveal elevated LDL (130) and total cholesterol (229). TSH was elevated to 8.23, however, free T4 normal at 1.24. The patient had nuclear stress test this morning with Dr. Cain. Imaging was normal without evidence of ischemia or infarct. Left ventricular systolic function was normal without wall motion abnormalities. Spoke with Dr. Cain who cleared the patient for discharge with outpatient follow-up. Patient reports she is currently asymptomatic; has been so since treatment in the emergency department. She is looking forward to discharge home. She is discharged in stable condition with recommendations to continue her home medication regiment unchanged. She is advised follow-up with her primary care provider within 1 week and to contact her established ground support equipment mechanic and follow-up as instructed. Physical Exam Vital Signs: Temp Pulse Resp BP Pulse Ox 97.3 F 57 L 18 114/48 L 98 08/12/20 12:08/12/20 12:08/12/20 12:08/12/20 12:08/12/20 12:09 Intake & Output 08/11/20 08/12/20 08/13/20 06:59 06:59 06:59 Intake Total 7 1140 650 Balance 7 1140 650 Weight 61.8 kg 62.3 kg 62.3 kg General appearance: PRESENT: no acute distress, well-developed, well-nourished Head exam: PRESENT: atraumatic, normocephalic Eye exam: PRESENT: conjunctiva pink, EOMI, PERRLA. ABSENT: scleral icterus Mouth exam: PRESENT: moist, tongue midline Respiratory exam: PRESENT: clear to auscultation maria t, symmetrical, unlabored. ABSENT: rales, rhonchi, wheezes Cardiovascular exam: PRESENT: RRR, +S1, +S2. ABSENT: diastolic murmur, rubs, systolic murmur Vascular exam: PRESENT: normal capillary refill Extremities exam: PRESENT: full ROM. ABSENT: calf tenderness, clubbing, pedal edema Musculoskeletal exam: PRESENT: ambulatory Neurological exam: PRESENT: alert, awake, oriented to person, oriented to place, oriented to time, oriented to situation, CN II-XII grossly intact. ABSENT: motor sensory deficit Psychiatric exam: PRESENT: appropriate affect, normal mood. ABSENT: homicidal ideation, suicidal ideation Skin exam: PRESENT: dry, intact, warm. ABSENT: cyanosis, rash Results Laboratory Results: WBC 6.9 10^3/uL (4.0-10.5) 08/12/20 04:33 RBC 4.48 10^6/uL (3.72-5.28) 08/12/20 04:33 Hgb 14.0 g/dL (12.0-15.5) 08/12/20 04:33 Hct 39.9 % (36.0-47.0) 08/12/20 04:33 MCV 89 fl (80-97) 08/12/20 04:33 MCH 31.2 pg (27.0-33.4) 08/12/20 04:33 MCHC 35.0 g/dL (32.0-36.0) 08/12/20 04:33 RDW 13.2 % (11.5-14.0) 08/12/20 04:33 Plt Count 208 10^3/uL (150-450) 08/12/20 04:33 Lymph % (Auto) 24.8 % (13-45) 08/11/20 04:20 Barren % (Auto) 9.5 % (3-13) 08/11/20 04:20 Eos % (Auto) 3.4 % (0-6) 08/11/20 04:20 Baso % (Auto) 1.1 % (0-2) 08/11/20 04:20 Absolute Neuts (auto) 5.4 10^3/uL (1.7-8.2) 08/11/20 04:20 Absolute Lymphs (auto) 2.2 10^3/uL (0.5-4.7) 08/11/20 04:20 Absolute Monos (auto) 0.8 10^3/uL (0.1-1.4) 08/11/20 04:20 Absolute Eos (auto) 0.3 10^3/uL (0.0-0.6) 08/11/20 04:20 Absolute Basos (auto) 0.1 10^3/uL (0.0-0.2) 08/11/20 04:20 Seg Neutrophils % 61.2 % (42-78) 08/11/20 04:20 Sodium 141.4 mmol/L (137-145) 08/12/20 04:33 Potassium 3.9 mmol/L (3.6-5.0) 08/12/20 04:33 Chloride 105 mmol/L (98-107) 08/12/20 04:33 Carbon Dioxide 24 mmol/L (22-30) 08/12/20 04:33 Anion Gap 12 (5-19) 08/12/20 04:33 BUN 22 mg/dL (7-20) H 08/12/20 04:33 Creatinine 0.75 mg/dL (0.52-1.25) 08/12/20 04:33 Est GFR ( Amer) > 60 (>60) 08/12/20 04:33 Est GFR (MDRD) Non-Af > 60 (>60) 08/12/20 04:33 Glucose 89 mg/dL (75-110) 08/12/20 04:33 Calcium 9.1 mg/dL (8.4-10.2) 08/12/20 04:33 Magnesium 2.0 mg/dL (1.6-2.3) 08/11/20 04:20 Total Bilirubin 0.5 mg/dL (0.2-1.3) 08/11/20 04:20 Direct Bilirubin 0.0 mg/dL (0.0-0.4) 08/11/20 04:20 Neonat Total Bilirubin Not Reportable 08/11/20 04:20 Neonat Direct Bilirubin Not Reportable 08/11/20 04:20 Neonat Indirect Bili Not Reportable 08/11/20 04:20 AST 35 U/L (14-36) 08/11/20 04:20 ALT 35 U/L (<35) 08/11/20 04:20 Alkaline Phosphatase 80 U/L (38-126) 08/11/20 04:20 Creatine Kinase 64 U/L (30-135) 08/11/20 04:20 CK-MB (CK-2) 0.85 ng/mL (<4.55) 08/11/20 04:20 Troponin I < 0.012 ng/mL 08/11/20 21:47 Total Protein 8.3 g/dL (6.3-8.2) H 08/11/20 04:20 Albumin 4.9 g/dL (3.5-5.0) 08/11/20 04:20 Triglycerides 126 mg/dL (<150) 08/12/20 04:33 Cholesterol 229.25 mg/dL (0-200) H 08/12/20 04:33 LDL Cholesterol Direct 130 mg/dL (<100) H 08/12/20 04:33 VLDL Cholesterol 25.0 mg/dL (10-31) 08/12/20 04:33 HDL Cholesterol 72 mg/dL (>40) 08/12/20 04:33 TSH 8.23 uIU/mL (0.47-4.68) H 08/11/20 04:20 Free T4 1.24 ng/dL (0.78-2.19) 08/11/20 04:20 Urine Color COLORLESS 08/11/20 04:30 Urine Appearance CLEAR 08/11/20 04:30 Urine pH 8.0 (5.0-9.0) 08/11/20 04:30 Ur Specific [place] 1.002 08/11/20 04:30 Urine Protein 30 mg/dL (NEGATIVE) H 08/11/20 04:30 Urine Glucose (UA) NEGATIVE mg/dL (NEGATIVE) 08/11/20 04:30 Urine Ketones NEGATIVE mg/dL (NEGATIVE) 08/11/20 04:30 Urine Blood SMALL (NEGATIVE) H 08/11/20 04:30 Urine Nitrite NEGATIVE (NEGATIVE) 08/11/20 04:30 Urine Bilirubin NEGATIVE (NEGATIVE) 08/11/20 04:30 Urine Urobilinogen NEGATIVE mg/dL (<2.0) 08/11/20 04:30 Ur Leukocyte Esterase NEGATIVE (NEGATIVE) 08/11/20 04:30 Urine WBC (Auto) 0 /HPF 08/11/20 04:30 Urine Bacteria (Auto) TRACE /HPF 08/11/20 04:30 Urine Ascorbic Acid NEGATIVE (NEGATIVE) 08/11/20 04:30 08/11/20 08/11/20 08/11/20 04:20 07:05 13:30 CK-MB (CK-2) 0.85 Troponin I 0.021 0.046 0.019 08/11/20 08/11/20 19:08 21:47 CK-MB (CK-2) Troponin I 0.014 < 0.012 Impressions: Chest X-Ray 08/11/20 04:16 IMPRESSION: Clear lungs. Plan Plan of Treatment: Patient is discharged home, in stable condition. She is advised follow-up with her primary care provider within 1 week. Notify her established ground support equipment mechanic of her admission, follow-up as instructed. Continue her home medication regiment unchanged. Do not smoke. Return to the emergency department, as needed, for concerning symptoms. Time Spent: Greater than 30 Minutes Stroke Is this a Stroke Patient?: No Acute Heart Failure Is this a Heart Failure Patient?: No
== END 2020-08-12 12:25 | disposition home or self-care (01) | DRG 310 ==
LOC: ER 03:57 → EH 10:07 → 4N 15:07
PROVIDERS: ADMIT Family Medicine; ATTEND Registered Nurse
DX: I48.19 Other persistent atrial fibrillation (principal); Z79.01 Long term (current) use of anticoagulants; Z82.49 Family history of ischemic heart disease and other diseases of the circulatory system
CPT/HCPCS: 36415; 71045; 78452; 80048; 80053; 80061; 81001; 82550; 82553; 83735; 84439; 84443; 84484; 85025; 85027; 87086; 93005; 93010; 93017; 96365; 96366; 96375; 99285; A9500; J2785; J3490; Q9969

== ENCOUNTER 2020-09-04 12:54 | Observation (INO) | payer MEDICARE ==
--- NOTE | 2020-09-04 13:08 | ER Document Report ---
ED Medical Screen (RME) - General Stated Complaint: DIZZINESS Time Seen by Provider: 09/04/20 13:01 Primary Care Provider: ERICK SHARMA MD [Primary Care Provider] - Follow up as needed Notes: Patient presents complaining of feeling faint this morning since taking her dose of flecainide. Patient states that her dose got increased last month and typically each day she has about a few hours that she feels lightheaded but usually passes. Patient states today she felt as though she was going to pass out. Patient does report some nausea and feeling weak. Patient denies any chest pain or shortness of breath. Patient with a history of A. fib and takes flecainide Coreg diltiazem and Eliquis. I have greeted and performed a rapid initial assessment of this patient. A comprehensive ED assessment and evaluation of the patient, analysis of test results and completion of the medical decision making process will be conducted by additional ED providers. TRAVEL OUTSIDE OF THE [place] IN LAST 30 DAYS: No - Related Data Allergies/Adverse Reactions: No Known Allergies Allergy (Verified 09/04/20 12:55) Past Medical History - Past Medical History Cardiac Medical History: Reports: Hx Atrial Fibrillation - with RVR, Hx Hypertension Renal/ Medical History: Denies: Hx Peritoneal Dialysis Psychiatric Medical History: Denies: Hx Depression - Immunizations Hx Diphtheria, Pertussis, Tetanus Vaccination: Yes Physical Exam - Vital signs Vitals: Temp Pulse Resp BP Pulse Ox 97.5 F 57 L 16 108/85 98 09/04/20 12:59 09/04/20 12:59 09/04/20 12:59 09/04/20 12:59 09/04/20 12:59 - Cardiovascular Rhythm: Irregularly irregular, Bradycardia Course - Vital Signs Vital signs: Temp Pulse Resp BP Pulse Ox 97.5 F 57 L 16 108/85 98 09/04/20 12:59 09/04/20 12:59 09/04/20 12:59 09/04/20 12:59 09/04/20 12:59 Doctor's Discharge - Discharge Referrals: ERICK SHARMA MD [Primary Care Provider] - Follow up as needed
--- NOTE | 2020-09-04 13:28 | ER Document Report ---
ED Cardiac - General Stated Complaint: DIZZINESS Time Seen by Provider: 09/04/20 13:01 Primary Care Provider: ERICK SHARMA MD [Primary Care Provider] - Follow up as needed TRAVEL OUTSIDE OF THE [place] IN LAST 30 DAYS: No - HPI Notes: Patient is a 74-year-old female with a past medical history of atrial fibrillation who presents with lightheadedness. Patient was in the hospital about 1 month ago for A. fib. Her customs collector added flecainide to her medications. She now takes diltiazem 180 mg in the morning. She also takes Coreg 25 mg twice daily and flecainide 150 mg twice daily. She is also on Eliquis. She states that since she started the flecainide, she has been increasingly lightheaded after taking the medicine. Today, she states she took the flecainide and symptoms were much worse. She was unsteady on her feet, she had to hang onto the wall, she was very lightheaded. Patient states that symptoms did not resolve so she came to the ER. On arrival, her heart rate was in the 30s on the monitor. Denies any cough or cold symptoms. No fevers or chills. - Related Data Allergies/Adverse Reactions: No Known Allergies Allergy (Verified 09/04/20 12:55) Past Medical History - General Information source: Patient, Relative - Social History Smoking Status: Never Smoker Chew tobacco use (# tins/day): No Frequency of alcohol use: None Drug Abuse: None Family History: CAD - Past Medical History Cardiac Medical History: Reports: Hx Atrial Fibrillation - with RVR, Hx Hypertension Renal/ Medical History: Denies: Hx Peritoneal Dialysis Psychiatric Medical History: Denies: Hx Depression - Immunizations Hx Diphtheria, Pertussis, Tetanus Vaccination: Yes Review of Systems - Review of Systems Notes: CONSTITUTIONAL: No fever, fatigue or weight loss. SKIN: No rash. HENT: No congestion, ear pain, or sore throat. CARDIOVASCULAR: No chest pain or edema. RESPIRATORY: No cough, shortness of breath, congestion, or wheezing. GASTROINTESTINAL: No abdominal pain, nausea, vomiting GENITOURINARY: No dysuria. MUSCULOSKELETAL: No joint pain or swelling. LYMPHATIC: No swollen glands. NEUROLOGIC: No seizures. No headache, focal weakness or sensory changes. Positive for lightheadedness and unsteadiness on her feet today. HEMATOLOGIC: No unusual bruising or bleeding. PSYCHIATRIC: No depression or anxiety. Physical Exam - Vital signs Vitals: Temp Pulse Resp BP Pulse Ox 97.5 F 57 L 16 108/85 98 09/04/20 12:59 09/04/20 12:59 09/04/20 12:59 09/04/20 12:59 09/04/20 12:59 - General General appearance: Appears well Notes: VITAL SIGNS: Within normal limits. GENERAL: No acute distress, non-toxic appearance. HEAD: Normal with no signs of head trauma. EYES: EOMI, conjunctiva normal, no discharge. EARS: Hearing grossly intact. NOSE: Normal. NECK: Normal range of motion, no tenderness, supple, no lymphadenopathy, No adenopathy, no JVD. CHEST: Clear breath sounds bilaterally. No wheezes, rales, or rhonchi. CARDIAC: Irregularly irregular. Bradycardic. VASCULAR: No Edema. ABDOMEN: Normal and soft with no tenderness GENITOURINARY: Normal, No tenderness MUSCULOSKELETAL: Good range of motion of all major joints. Extremities without clubbing, cyanosis or edema. NEUROLOGICAL: Alert and oriented x 3. No focal sensory or strength deficits. Speech normal. Follows commands appropriately. PSYCHIATRIC: Normal Affect, judgement and mood. SKIN: Normal appearance with no rashes or lesions. Course - Re-evaluation Re-evalutation: 09/04/20 15:12 Patient's initial heart rate on the monitor was in the 30s. She is mentating appropriately. I discussed with cardiology, Dr. Anna who recommended that we stop all her cardiac medications while she is in the hospital. He thinks that the bradycardia and lightheadedness are due to the new prescription of flecainide. He states that she has too many AV dawson blocking agents on board. On reevaluation, patient continues to be alert and oriented. Her heart rate has improved to the high 50s. Patient is very agreeable to the plan for admission. - Vital Signs Vital signs: Temp Pulse Resp BP Pulse Ox 97.5 F 57 L 17 164/68 H 99 09/04/20 12:59 09/04/20 12:59 09/04/20 15:01 09/04/20 15:00 09/04/20 15:01 - Laboratory Result Diagrams: 09/04/20 13:15 09/04/20 13:15 Laboratory results interpreted by me: 09/04/20 13:15 Sodium 132.1 L Chloride 96 L Glucose 143 H AST 141 H ALT 133 H - EKG Interpretation by Me Additional EKG results interpreted by me: 09/04/20 15:16 Atrial fibrillation at a rate of 74. QTc 506. Prolonged QT interval. Pauses present. No previous EKG immediately available for comparison. Discharge - Discharge Clinical Impression: Atrial fibrillation with slow ventricular response, Symptomatic bradycardia Condition: Stable Disposition: ADMITTED OBSERVATION Admitting Provider: Grazyna (Hospitalist) Unit Admitted: IMCU Referrals: ERICK SHARMA MD [Primary Care Provider] - Follow up as needed
[2020-09-04 13:32] LABS: ABSOLUTE EOSINOPHILS # (AUTO) 0.1 10^3/uL (0.0-0.6); ABSOLUTE LYMPHOCYTES (AUTO) 1.2 10^3/uL (0.5-4.7); ABSOLUTE MONOCYTES (AUTO) 0.5 10^3/uL (0.1-1.4); ABSOLUTE NEUT (AUTO) 5.7 10^3/uL (1.7-8.2); BASOPHILS % (AUTO) 0.6 % (0-2); EOSINOPHILS % (AUTO) 1.6 % (0-6); HEMATOCRIT 40.3 % (36.0-47.0); HEMOGLOBIN 13.6 g/dL (12.0-15.5); LYMPHOCYTES % (AUTO) 16.2 % (13-45); MEAN CORPUSCULAR HEMOGLOBIN 30.4 pg (27.0-33.4); MEAN CORPUSCULAR HGB CONC 33.6 g/dL (32.0-36.0); MEAN CORPUSCULAR VOLUME 91 fl (80-97); MONOCYTES % (AUTO) 6.3 % (3-13); PLATELET COUNT 241 10^3/uL (150-450); RED BLOOD COUNT 4.45 10^6/uL (3.72-5.28); RED CELL DISTRIBUTION WIDTH 13.2 % (11.5-14.0); SEGMENTED NEUTROPHILS % (AUTO) 75.3 % (42-78); TOTAL CELLS COUNTED % (AUTO) 100 %; WHITE BLOOD COUNT 7.6 10^3/uL (4.0-10.5)
--- NOTE | 2020-09-04 13:54 | RADIOLOGY REPORT (SQ) ---
EXAM DESCRIPTION: CHEST SINGLE VIEW IMAGES COMPLETED DATE/TIME: 09/04/2020 12:34 pm REASON FOR STUDY: weak, lightheaded. COMPARISON: 08/11/2020 EXAM PARAMETERS: NUMBER OF VIEWS: One view. TECHNIQUE: Single frontal radiographic view of the chest acquired. RADIATION DOSE: NA LIMITATIONS: None. FINDINGS: LUNGS AND PLEURA: Lungs are hyperinflated. No opacities, masses or pneumothorax. No pleur al effusion. MEDIASTINUM AND HILAR STRUCTURES: No masses. Contour normal. HEART AND VASCULAR STRUCTURES: Heart normal in size. Normal vasculature. BONES: No acute findings. HARDWARE: None in the chest. OTHER: No other significant finding. IMPRESSION: NO ACUTE RADIOGRAPHIC FINDING IN THE CHEST. TECHNICAL DOCUMENTATION: JOB ID: [id number] 2010 [employer]- All Rights Reserved Reading location - IP/workstation name: [email or web address]
[2020-09-04 13:55] LABS: ALBUMIN 4.4 g/dL (3.5-5.0); ALKALINE PHOSPHATASE 88 U/L (38-126); ANION GAP 9 (5-19); ASPARTATE AMINO TRANSFERASE 141 U/L (14-36); BILIRUBIN,DIRECT 0.2 mg/dL (0.0-0.4); BILIRUBIN,TOTAL 0.7 mg/dL (0.2-1.3); BLOOD UREA NITROGEN 17 mg/dL (7-20); CALCIUM 8.7 mg/dL (8.4-10.2); CARBON DIOXIDE 27 mmol/L (22-30); CHLORIDE 96 mmol/L (98-107); GLUCOSE 143 mg/dL (75-110); POTASSIUM 4.6 mmol/L (3.6-5.0)
--- NOTE | 2020-09-04 14:38 | EKG REPORT ---
SEVERITY:- ABNORMAL ECG - ATRIAL FIBRILLATION BORDERLINE PROLONGED QT INTERVAL : Confirmed by: Juni Haile MD 04-Sep-2020 14:37:37
[2020-09-04] MEDS ORDERED: MAGNESIUM HYDROXIDE SUSP 30 ML UDCUP PO PRN (15:58)
[2020-09-04] MEDS ORDERED: OXYCODONE-ACETAMINOPHEN 5-325 MG TABLET PO PRN (15:58)
[2020-09-04] MEDS ORDERED: ACETAMINOPHEN 325 MG TABLET PO PRN (15:58)
[2020-09-04] MEDS ORDERED: IPRATROPIUM/ALBUTEROL 0.5-2.5 MG/3 ML AMPUL NEB PRN (15:58)
[2020-09-04] MEDS ORDERED: TEMAZEPAM 7.5 MG CAPSULE PO PRN (15:58)
[2020-09-04] MEDS ORDERED: ONDANSETRON HCL INJ/PF 4 MG/2 ML SDV IV PRN (15:58)
--- NOTE | 2020-09-04 15:58 | PDOC H&P ---
History of Present Illness Admission Date/PCP: 09/04/20 15:21 ERICK SHAMRA MD History of Present Illness: MARIO GEORGE is a 74 year old female past medical history of atrial fibrill ation, hypertension, who was admitted on 08/11/2020 for A. fib RVR, patient was given IV injection of Cardizem and converted to sinus rhythm, following day patient was discharged after undergoing nuclear stress test which was read as normal. Patient was discharged on her home medication of diltiazem 100 mg p.o. every morning, carvedilol 25 mg p.o. twice daily, Eliquis 5 mg p.o. twice daily, flecainide 150 mg daily, patient is stating after being discharged she contacted her forging roll operator and she was advised to increase her flecainide from 150 daily to 150 twice daily. Patient is stating that she was taking her flecainide with carvedilol at night she would not feel any symptoms however when she was taking her flecainide with diltiazem in the mornings she would feel very lethargic and out of energy, she thought she would get used to it if she just waited long enough, today after taking her flecainide with Cardizem she was feeling lightheaded and nauseous and decided to come to the hospital, in ED was noted to have a heart rate of in the 30s. Dr. Júnior Anna cardiology was consulted by ED physician and he has recommended to hold off on her AV blocking medications and observe patient for overnight. On my encounter patient is alert and oriented, does not seem to be in any apparent distress, her heart rate has recovered, denies any chest pain, lightheadedness, fever, chills, nausea, diarrhea, constipation or any urinary symptoms. Past Medical History Cardiac Medical History: Reports: Atrial Fibrillation - with RVR, Hypertension Psychiatric Medical History: Denies: Depression Social History Smoking Status: Never Smoker Electronic Cigarette use?: No Frequency of Alcohol Use: None Hx Recreational Drug Use: No Drugs: None Hx Prescription Drug Abuse: No Family History Family History: CAD Parental Family History Reviewed: Yes Children Family History Reviewed: Yes Sibling(s) Family History Reviewed.: Yes Medication/Allergy Home Medications: Diltiazem HCl [Cartia Xt] 180 mg PO QAM 02/05/18 Apixaban [Eliquis 5 mg Tablet] 5 mg PO Q12 08/11/20 Carvedilol 25 mg PO Q12 08/11/20 Flecainide Acetate [Tambocor 100 mg Tablet] 150 mg PO Q12 08/11/20 Allergies/Adverse Reactions: No Known Allergies Allergy (Verified 09/04/20 12:55) Review of Systems Review of Systems: as per hpi Physical Exam Vital Signs: Temp Pulse Resp BP Pulse Ox 97.5 F 57 L 17 164/68 H 99 09/04/20 12:59 09/04/20 12:59 09/04/20 15:01 09/04/20 15:00 09/04/20 15:01 Intake & Output 09/03/20 09/04/20 09/05/20 06:59 06:59 06:59 Weight 63.9 kg General appearance: PRESENT: no acute distress, well-developed, well-nourished Head exam: PRESENT: atraumatic, normocephalic Respiratory exam: PRESENT: clear to auscultation maria t. ABSENT: rales, rhonchi, wheezes Cardiovascular exam: PRESENT: RRR. ABSENT: diastolic murmur, rubs, systolic murmur GI/Abdominal exam: PRESENT: normal bowel sounds, soft. ABSENT: distended, g uarding, mass, organolmegaly, rebound, tenderness Extremities exam: PRESENT: full ROM. ABSENT: calf tenderness, clubbing, pedal edema Neurological exam: PRESENT: alert, awake, oriented to person, oriented to place, oriented to time, oriented to situation, CN II-XII grossly intact. ABSENT: motor sensory deficit Results Laboratory Results: 09/04/20 13:15 09/04/20 13:15 09/04/20 09/04/20 13:15 13:15 WBC 7.6 RBC 4.45 Hgb 13.6 Hct 40.3 MCV 91 MCH 30.4 MCHC 33.6 RDW 13.2 Plt Count 241 Seg Neutrophils % 75.3 Sodium 132.1 L Potassium 4.6 Chloride 96 L Carbon Dioxide 27 Anion Gap 9 BUN 17 Creatinine 0.86 Est GFR ( Amer) > 60 Glucose 143 H Calcium 8.7 Magnesium 2.1 Total Bilirubin 0.7 AST 141 H Alkaline Phosphatase 88 Total Protein 7.0 Albumin 4.4 09/04/20 13:15 Troponin I < 0.012 Impressions: Chest X-Ray 09/04/20 13:06 IMPRESSION: NO ACUTE RADIOGRAPHIC FINDING IN THE CHEST. Assessment and Plan - Diagnosis (1) Symptomatic bradycardia Is this a current diagnosis for this admission?: Yes Plan: Likely overmedicated. Patient is on flecainide 150 mg p.o. twice daily, Coreg 25 and Cardizem extended release 180 mg p.o. every morning. At the moment patient heart rate is within normal limits, denies any lig htheadedness chest pain or nausea. As per cardiology recommendation no acute intervention necessary at this point, will admit for overnight observation in telemetry. Cardiology consulted. (2) Hypertension Qualifiers: Hypertension type: essential hypertension Qualified Code(s): I10 - Essential (primary) hypertension Is this a current diagnosis for this admission?: Yes Plan: Euvolemic. Normotensive. Resume home meds. Adjust meds as needed. Outpatient PCP follow-up. (3) Atrial fibrillation with RVR Is this a current diagnosis for this admission?: Yes Plan: History of chronic persistent atrial fibrillation. On chronic anticoagulation and AV blocking agents. Resume home meds and adjust once patient bradycardia has resolved. - Time Time Spent with patient: 25-34 minutes Medications reviewed and adjusted accordingly: Yes Anticipated Discharge Disposition: Home, Self Care Anticipated Discharge Timeframe: within 24 hours
[2020-09-04] MEDS ORDERED: METOPROLOL TARTRATE PF/INJ 5 MG/5 ML SDV IV PRN (16:07)
[2020-09-04] MEDS: APIXABAN 5 MG TABLET PO SCH (22:18)
[2020-09-04] MEDS: FAMOTIDINE 20 MG TABLET PO SCH (22:18)
[2020-09-05 06:38] LABS: ALBUMIN 4.2 g/dL (3.5-5.0); ALKALINE PHOSPHATASE 77 U/L (38-126); ASPARTATE AMINO TRANSFERASE 73 U/L (14-36); BILIRUBIN,DIRECT 0.1 mg/dL (0.0-0.4); BILIRUBIN,TOTAL 0.7 mg/dL (0.2-1.3); TOTAL PROTEIN 6.9 g/dL (6.3-8.2)
[2020-09-05] MEDS: FAMOTIDINE 20 MG TABLET PO SCH (10:22)
[2020-09-05] MEDS: APIXABAN 5 MG TABLET PO SCH (10:22)
--- NOTE | 2020-09-05 11:10 | PDOC CONSULTATION ---
Consultation Consult Date: 09/05/20 Attending physician:: PEGGY RODRIGUEZ Provider Consulted: GWEN LYLE Consult reason:: Bradycardia History of Present Illness Admission Date/PCP: 09/04/20 15:21 ERICK SHARMA MD Patient complains of: Dizziness History of Present Illness: MARIO GEORGE is a 74 year old female With the following active problems 1. Paroxysmal atrial fibrillation 2. Long-term systemic anticoagulation 3. Systemic hypertension Patient is usually followed at [facility] cardiology in [place]. Patient has been managed with a rhythm control strategy with flecainide together with calcium channel mikel as well as beta-mikel together with apixaban 5 mg twice daily for systemic anticoagulation. It appears that there has been no recent dose change with flecainide dose been increased to 150 mg twice daily with the patient being maintained on 2 separate AV dawson blocking agents. She came in presenting with dizziness and also was noted to be bradycardic on telemetry. Since admission to the hospital flecainide as well as AV dawson blockers were discontinued with stabilization of heart rhythm without pauses and also resolution of symptoms. Presently on pvc monitor she is maintaining sinus rhythm at 68 bpm. She feels a lot better. No familial illnesses reported She is not a smoker. No major surgeries reported to me. Past Medical History Cardiac Medical History: Reports: Atrial Fibrillation - with RVR, Hypertension Psychiatric Medical History: Denies: Depression Social History Smoking Status: Never Smoker Electronic Cigarette use?: No Frequency of Alcohol Use: None Hx Recreational Drug Use: No Drugs: None Hx Prescription Drug Abuse: No Family History Family History: CAD Parental Family History Reviewed: Yes - No familial illnesses Children Family History Reviewed: NA Sibling(s) Family History Reviewed.: NA Medication/Allergy Home Medications: Diltiazem HCl [Cartia Xt] 180 mg PO QAM 02/05/18 Apixaban [Eliquis 5 mg Tablet] 5 mg PO Q12 08/11/20 Carvedilol 25 mg PO Q12 08/11/20 Flecainide Acetate [Tambocor 100 mg Tablet] 150 mg PO Q12 08/11/20 Allergies/Adverse Reactions: No Known Allergies Allergy (Verified 09/04/20 12:55) Review of Systems Cardiovascular: ABSENT: as per HPI, chest pain, dyspnea on exertion, edema, orthropnea, palpitations, other Integumentary: ABSENT: as per HPI, diaphoresis, erythema, lesions, pruritus, rash, wounds, other Neurological: PRESENT: dizziness Physical Exam Vital Signs: Temp Pulse Resp BP Pulse Ox 98.2 F 64 18 164/60 H 97 09/05/20 08:00 09/05/20 08:00 09/05/20 08:00 09/05/20 08:00 09/05/20 08:00 Intake & Output 09/04/20 09/05/20 09/06/20 06:59 06:59 06:59 Weight 61.3 kg General appearance: PRESENT: no acute distress, cooperative, well-developed, well-nourished Head exam: PRESENT: atraumatic, normocephalic Eye exam: PRESENT: conjunctiva pink, EOMI Mouth exam: PRESENT: moist Respiratory exam: PRESENT: clear to auscultation maria t, symmetrical, unlabored Cardiovascular exam: PRESENT: RRR, +S1, +S2 Pulses: PRESENT: normal radial pulses GI/Abdominal exam: PRESENT: soft Rectal exam: PRESENT: deferred Neurological exam: PRESENT: alert, awake, oriented to person, oriented to place, oriented to time, oriented to situation Skin exam: PRESENT: dry, intact, normal color Results Laboratory Results: 09/04/20 13:15 09/04/20 13:15 09/04/20 09/04/20 09/05/20 13:15 13:15 05:00 WBC 7.6 RBC 4.45 Hgb 13.6 Hct 40.3 MCV 91 MCH 30.4 MCHC 33.6 RDW 13.2 Plt Count 241 Seg Neutrophils % 75.3 Sodium 132.1 L Potassium 4.6 Chloride 96 L Carbon Dioxide 27 Anion Gap 9 BUN 17 Creatinine 0.86 Est GFR ( Amer) > 60 Glucose 143 H Calcium 8.7 Magnesium 2.1 Total Bilirubin 0.7 0.7 AST 141 H 73 H Alkaline Phosphatase 88 77 Total Protein 7.0 6.9 Albumin 4.4 4.2 09/04/20 13:15 Troponin I < 0.012 EKG Comments: Twelve-lead EKG. 09/04/2020. Independently viewed by me. Atrial fibrillation. Ventricular rate is controlled. Pauses noted. QT is prolonged. Chest x-ray is negative Impressions: Chest X-Ray 09/04/20 13:06 IMPRESSION: NO ACUTE RADIOGRAPHIC FINDING IN THE CHEST. Assessment & Plan - Diagnosis (1) Atrial fibrillation with slow ventricular response Is this a current diagnosis for this admission?: Yes Plan: Patient has been maintained on rhythm control strategy I suspect that increased dose of flecainide together with 2 different AV dawson blocking agents probably resulted in symptomatic bradycardia Given that the symptoms and ventricular rate have improved since discontinuing all 3 agents there is no urgent indication for pursuing permanent pacing Should a rhythm control strategy continue to be preferred permanent pacemaker may need to be considered. I discussed with the patient. She prefers to talk to her computer peripheral equipment operator about this decision For the moment I suggested that we forego flecainide and just use the diltiazem at her existing dose for rate control strategy. Would recommend continued systemic anticoagulation.
[2020-09-05] MEDS ORDERED: DILTIAZEM HCL 180 MG CAPSULE.CR PO SCH (12:00)
[2020-09-05 13:40] VITALS: BP 120/53
[2020-09-05] MEDS ORDERED: ONDANSETRON HCL INJ/PF 4 MG/2 ML SDV IV PRN (15:00)
--- NOTE | 2020-09-05 16:49 | PDOC DISCHARGE SUMMARY ---
Impression - Admit/DC Date/PCP Admission Date/Primary Care Provider: 09/04/20 15:21 ERICK SHARMA MD Discharge Date: 09/05/20 - Discharge Diagnosis (1) Symptomatic bradycardia Is this a current diagnosis for this admission?: Yes (2) Hypertension Is this a current diagnosis for this admission?: Yes (3) Atrial fibrillation with RVR Is this a current diagnosis for this admission?: Yes - Additional Information Discharge Diet: Cardiac Discharge Activity: Activity As Tolerated Referrals: ERICK SHARMA MD [Primary Care Provider] - Follow up as needed Home Medications: Diltiazem HCl [Cartia Xt] 180 mg PO QAM 02/05/18 Apixaban [Eliquis 5 mg Tablet] 5 mg PO Q12 08/11/20 History of Present Illiness History of Present Illness: MARIO GEORGE is a 74 year old female past medical history of atrial fibrillation, hypertension, who was admitted on 08/11/2020 for A. fib RVR, patient was given IV injection of Cardizem and converted to sinus rhythm, following day patient was discharged after undergoing nuclear stress test which was read as normal. Patient was discharged on her home medication of diltiazem 100 mg p.o. every morning, carvedilol 25 mg p.o. twice daily, Eliquis 5 mg p.o. twice daily, flecainide 150 mg daily, patient is stating after being discharged she contacted her ballast regulator operator and she was advised to increase her flecainide from 150 daily to 150 twice daily. Patient is stating that she was taking her flecainide with carvedilol at night she would not feel any symptoms however when she was taking her flecainide with diltiazem in the mornings she would feel very lethargic and out of energy, she thought she would get used to it if she just waited long enough, today after taking her flecainide with Cardizem she was feeling lightheaded and nauseous and decided to come to the hospital, in ED was noted to have a heart rate of in the 30s. Dr. Júnior Anna cardiology was consulted by ED physician and he has recommended to hold off on her AV blocking medications and observe patient for overnight. On my encounter patient is alert and oriented, does not seem to be in any apparent distress, her heart rate has recovered, denies any chest pain, lightheadedness, fever, chills, nausea, diarrhea, constipation or any urinary symptoms. Hospital Course Hospital Course: (1) Symptomatic bradycardia Resolved. Likely overmedicated. Patient is on flecainide 150 mg p.o. twice daily, Coreg 25 and Cardizem extended release 180 mg p.o. every morning. Patient was admitted for observation overnight. Heart rate remained within normal limits. Asymptomatic. Cardiology consulted. As per the recommendation patient was discharged home to continue her Cardizem and contact her ballast regulator operator and follow-up with cardiology as soon as possible. Patient stated that she will be calling her ballast regulator operator today and will try to see him on Tuesday. (2) Hypertension Euvolemic. Normotensive. Outpatient PCP follow-up. (3) Atrial fibrillation with RVR History of chronic persistent atrial fibrillation. Rate controlled. Anticoagulated. Flecainide and beta-blockers were held. Patient was asked to resume her anticoagulation on Cardizem follow-up with PCP and cardiology as soon as possible. Physical Exam Vital Signs: Temp Pulse Resp BP Pulse Ox 98.1 F 80 20 120/53 L 97 09/05/20 14:56 09/05/20 14:56 09/05/20 14:56 09/05/20 14:56 09/05/20 14:56 Intake & Output 09/04/20 09/05/20 09/06/20 06:59 06:59 06:59 Intake Total 420 Balance 420 Weight 61.3 kg General appearance: PRESENT: no acute distress, well-developed, well-nourished Head exam: PRESENT: atraumatic, normocephalic Eye exam: PRESENT: conjunctiva pink, EOMI, PERRLA. ABSENT: scleral icterus Ear exam: PRESENT: normal external ear exam Mouth exam: PRESENT: moist, tongue midline Neck exam: ABSENT: carotid bruit, JVD, lymphadenopathy, thyromegaly Respiratory exam: PRESENT: clear to auscultation maria t. ABSENT: rales, rhonchi, wheezes Cardiovascular exam: PRESENT: RRR. ABSENT: diastolic murmur, rubs, systolic murmur Pulses: PRESENT: normal dorsalis pedis pul Vascular exam: PRESENT: normal capillary refill GI/Abdominal exam: PRESENT: normal bowel sounds, soft. ABSENT: distended, guarding, mass, organolmegaly, rebound, tenderness Rectal exam: PRESENT: deferred Extremities exam: PRESENT: full ROM. ABSENT: calf tenderness, clubbing, pedal edema Neurological exam: PRESENT: alert, awake, oriented to person, oriented to place, oriented to time, oriented to situation, CN II-XII grossly intact. ABSENT: motor sensory deficit Psychiatric exam: PRESENT: appropriate affect, normal mood. ABSENT: homicidal ideation, suicidal ideation Skin exam: PRESENT: dry, intact, warm. ABSENT: cyanosis, rash Results Laboratory Results: WBC 7.6 10^3/uL (4.0-10.5) 09/04/20 13:15 RBC 4.45 10^6/uL (3.72-5.28) 09/04/20 13:15 Hgb 13.6 g/dL (12.0-15.5) 09/04/20 13:15 Hct 40.3 % (36.0-47.0) 09/04/20 13:15 MCV 91 fl (80-97) 09/04/20 13:15 MCH 30.4 pg (27.0-33.4) 09/04/20 13:15 MCHC 33.6 g/dL (32.0-36.0) 09/04/20 13:15 RDW 13.2 % (11.5-14.0) 09/04/20 13:15 Plt Count 241 10^3/uL (150-450) 09/04/20 13:15 Lymph % (Auto) 16.2 % (13-45) 09/04/20 13:15 [place] % (Auto) 6.3 % (3-13) 09/04/20 13:15 Eos % (Auto) 1.6 % (0-6) 09/04/20 13:15 Baso % (Auto) 0.6 % (0-2) 09/04/20 13:15 Absolute Neuts (auto) 5.7 10^3/uL (1.7-8.2) 09/04/20 13:15 Absolute Lymphs (auto) 1.2 10^3/uL (0.5-4.7) 09/04/20 13:15 Absolute Monos (auto) 0.5 10^3/uL (0.1-1.4) 09/04/20 13:15 Absolute Eos (auto) 0.1 10^3/uL (0.0-0.6) 09/04/20 13:15 Absolute Basos (auto) 0.0 10^3/uL (0.0-0.2) 09/04/20 13:15 Seg Neutrophils % 75.3 % (42-78) 09/04/20 13:15 Sodium 132.1 mmol/L (137-145) L 09/04/20 13:15 Potassium 4.6 mmol/L (3.6-5.0) 09/04/20 13:15 Chloride 96 mmol/L (98-107) L 09/04/20 13:15 Carbon Dioxide 27 mmol/L (22-30) 09/04/20 13:15 Anion Gap 9 (5-19) 09/04/20 13:15 BUN 17 mg/dL (7-20) 09/04/20 13:15 Creatinine 0.86 mg/dL (0.52-1.25) 09/04/20 13:15 Est GFR ( Amer) > 60 (>60) 09/04/20 13:15 Est GFR (MDRD) Non-Af > 60 (>60) 09/04/20 13:15 Glucose 143 mg/dL (75-110) H 09/04/20 13:15 Calcium 8.7 mg/dL (8.4-10.2) 09/04/20 13:15 Magnesium 2.1 mg/dL (1.6-2.3) 09/04/20 13:15 Total Bilirubin 0.7 mg/dL (0.2-1.3) 09/05/20 05:00 Direct Bilirubin 0.1 mg/dL (0.0-0.4) 09/05/20 05:00 Neonat Total Bilirubin Not Reportable 09/05/20 05:00 Neonat Direct Bilirubin Not Reportable 09/05/20 05:00 Neonat Indirect Bili Not Reportable 09/05/20 05:00 AST 73 U/L (14-36) H 09/05/20 05:00 ALT 122 U/L (<35) H 09/05/20 05:00 Alkaline Phosphatase 77 U/L (38-126) 09/05/20 05:00 Troponin I < 0.012 ng/mL 09/04/20 13:15 Total Protein 6.9 g/dL (6.3-8.2) 09/05/20 05:00 Albumin 4.2 g/dL (3.5-5.0) 09/05/20 05:00 09/04/20 13:15 Troponin I < 0.012 Impressions: Chest X-Ray 09/04/20 13:06 IMPRESSION: NO ACUTE RADIOGRAPHIC FINDING IN THE CHEST. Stroke Is this a Stroke Patient?: No Acute Heart Failure Is this a Heart Failure Patient?: No
== END 2020-09-05 15:17 | disposition home or self-care (01) ==
LOC: ER 12:54 → EH 15:21 → 5 18:45
PROVIDERS: ADMIT Internal Medicine; ATTEND Internal Medicine
DX: R00.1 Bradycardia, unspecified (principal); I10 Essential (primary) hypertension; I48.19 Other persistent atrial fibrillation; R26.81 Unsteadiness on feet; R11.0 Nausea; R53.1 Weakness; Z79.899 Other long term (current) drug therapy; Z79.01 Long term (current) use of anticoagulants; Z82.49 Family history of ischemic heart disease and other diseases of the circulatory system
CPT/HCPCS: 93005; 99285; 36415 ×2; 83735; 85025; 80076; 80053; 84484; 71045; 93010; G0378 ×3; A9270 ×4